=== PATIENT | male | born 1940 ===

== ENCOUNTER 2021-03-14 13:41 | Emergency (ER) | payer OTHER ==
[~2021-03-14] VITALS: Ht 172.7 cm; Wt 77.6 kg
[2021-03-14] MEDS ORDERED: ATACAND32 MG (14:01)
[2021-03-14] MEDS ORDERED: ECOTRIN81 MG (14:01)
[2021-03-14] MEDS ORDERED: TERAZOSIN HCL5 MG (14:02)
== END 2021-03-14 20:00 | disposition home or self-care (01) ==
LOC: ER 13:41
DX: N39.0 Urinary tract infection, site not specified (principal); Z03.818 Encounter for observation for suspected exposure to other biological agents ruled out; R50.9 Fever, unspecified; R11.0 Nausea

== ENCOUNTER 2021-03-16 22:03 | Emergency (ER) | payer OTHER ==
[~2021-03-16] VITALS: Ht 172.7 cm; Wt 77.6 kg
[~2021-03-16 22:03] MED LIST: ATACAND32 MG; ECOTRIN81 MG; TERAZOSIN HCL5 MG
[2021-03-17] MEDS ORDERED: LASIX20 MG PO (10:14)
== END 2021-03-17 10:28 | disposition home or self-care (01) ==
LOC: ER 22:03
DX: N30.90 Cystitis, unspecified without hematuria (principal); N39.0 Urinary tract infection, site not specified; R33.8 Other retention of urine; R06.02 Shortness of breath; I50.9 Heart failure, unspecified

== ENCOUNTER 2021-03-19 21:46 | Emergency (ER) | payer OTHER ==
[~2021-03-19] VITALS: Ht 172.7 cm; Wt 82.1 kg
[~2021-03-19 21:46] MED LIST changes: +LASIX20 MG PO
[2021-03-20] MEDS ORDERED: ISOSORBIDE DINI30 MG PO (10:47)
[2021-03-20] MEDS ORDERED: LASIX20 MG PO (10:47)
== END 2021-03-20 10:30 | disposition home or self-care (01) ==
LOC: ER 21:46
DX: J44.1 Chronic obstructive pulmonary disease with (acute) exacerbation (principal); I11.0 Hypertensive heart disease with heart failure; I50.9 Heart failure, unspecified; R06.02 Shortness of breath; Z95.0 Presence of cardiac pacemaker; Z87.891 Personal history of nicotine dependence; Z03.818 Encounter for observation for suspected exposure to other biological agents ruled out